=== PATIENT | female | born 1970 | race Caucasian/White ===

== ENCOUNTER 2024-05-25 15:45 | Outpatient (RCR) | payer OTHER, SELFPAY | END 2024-06-22 16:17 | disposition home or self-care (01) | PROVIDERS: PCP Physician Assistant Medical; Visit Provider Physician Assistant Medical | DX: M25.561 Pain in right knee (principal); M25.661 Stiffness of right knee, not elsewhere classified; M22.41 Chondromalacia patellae, right knee; Z51.89 Encounter for other specified aftercare | CPT/HCPCS: 97110; 97112; 97161 ==